=== PATIENT | male | born 1975 | race Caucasian/White ===

== ENCOUNTER → 2016-07-26 | Outpatient (CLI) | payer BC ==
[~2016-07-26] MED LIST: ACET-785 PO; ALBU8.5H5 IH; CALC-586 PO; GLUC1TAB45 PO; LORA-326 PO; MULT-806 PO; NAPR-561 PO
--- NOTE | 2016-07-27 09:19 | DI ---
Indication: ITS.REASON: M54.12 RADICULOPATHY CERVICAL PROCEDURE: MRI CERVICAL SPINE W/O CONTRAS: Encounter: Initial Comparison: None Technique: Multiplanar multisequence MR imaging of the cervical spine was performed without contrast. Findings: Alignment of cervical spine is within normal limits. No acute fracture or subluxation. Cervical and visualized upper thoracic spinal cord signal intensity is normal. Paraspinal soft tissues are within normal limits. Segmental analysis: C2-C3: Normal C3-C4: Right-sided uncovertebral hypertrophy without significant neural foraminal stenosis. No central canal or left neural foraminal narrowing. C4-C5: No significant disk herniation, central canal or neural foraminal stenosis. C5-C6: Small right central disk protrusion. No central canal stenosis. No true neural foraminal narrowing. C6-C7: Left central disk bulge causing mild left neural foraminal narrowing. No central canal or right neural foraminal stenosis. C7-T1: Normal Impression: Mild degenerative disk disease as above. .
--- NOTE | 2016-07-27 09:23 | DI ---
Indication: ITS.REASON: M54.5 LOW BACK PAIN PROCEDURE: MRI LUMBAR SPINE W/O CONTRAST: Encounter: Initial Comparison: None Technique: Multiplanar multisequence MR imaging of the lumbar spine was performed without contrast. Findings: Alignment of the lumbar spine is within normal limits. No acute fracture identified. Small Schmorl's nodes seen in the lower thoracic spine. Conus medullaris terminates normally at T12. The paraspinal soft tissues are within normal limits. Segmental analysis: L1-L2: Normal L2-L3: Mild disk desiccation and slight bulging without central canal stenosis. No significant neural foraminal narrowing. L3-L4: Mild disk desiccation without focal protrusion or central canal stenosis. No neural foraminal stenosis. L4-L5: Mild disk desiccation and minimal central bulging. No central canal stenosis. No neural foraminal stenosis. L5-S1: Normal Impression: No significant disk protrusion, central canal or neural foraminal stenosis. .
== END ==
LOC: IMA 17:41
PROVIDERS: ATTEND Physician Assistant Medical
DX: M50.123 Cervical disc disorder at C6-C7 level with radiculopathy (principal); M54.5 Low back pain